=== PATIENT | female | born 1975 | race Caucasian/White ===

== ENCOUNTER 2022-06-20 12:12 | Emergency (ER) | payer BC ==
[2022-06-20] MEDS ORDERED: HYDROCODON-ACE1 EAC4 PO ×2 (14:03→14:18)
== END 2022-06-20 14:22 | disposition home or self-care (01) ==
LOC: ER1 12:12
DX: S92.322A Displaced fracture of second metatarsal bone, left foot, initial encounter for closed fracture (principal); S92.331A Displaced fracture of third metatarsal bone, right foot, initial encounter for closed fracture; I10 Essential (primary) hypertension; W10.9XXA Fall (on) (from) unspecified stairs and steps, initial encounter
CPT/HCPCS: 28475; 73630; 99283